=== PATIENT | male | born 1990 | race Asian ===

== ENCOUNTER 2020-03-15 20:11 | Emergency (ER) | payer SELFPAY ==
[~2020-03-15] VITALS: Ht 172.7 cm; Wt 52.2 kg
[2020-03-15 20:18] VITALS: BP 113/73
[2020-03-15] MEDS ORDERED: ELIMITE 5% CREA60 GM TOPIC (21:19)
--- NOTE | 2020-03-15 21:36 | Emergency Room Report ---
History of Present Illness General Chief Complaint: Skin Rash/Abscess Source: Patient Present Illness HPI 29-year-old male presented by EMS from the street due to lower extremity pain and rash. He states he noted the rash over the past couple of days. He denies being homeless. He is not sure if other people in his home have the rash. It is itching. Around both ankles. He also reports using methamphetamine yesterday. He denies any fevers nausea vomiting chest pain or shortness of breath. Allergies: Coded Allergies: No Known Allergies (Unverified , 03/15/20) COVID-19 Screening Contact w/high risk pt: No Recent Travel to affected area: No Experienced COVID-19 symptoms?: No COVID-19 Testing performed [employer]: Yes COVID-19 Screening: Negative COVID-19 COVID-19 Testing Source: snf Patient History Reviewed Nursing Documentation: PMH: Agreed; PSxH: Agreed Nursing Documentation-PMH Past Medical History: No Stated History Review of Systems All Other Systems: negative except mentioned in HPI Physical Exam Vital Signs Date Time Temp Pulse Resp B/P (MAP) Pulse Ox O2 Delivery O2 Flow Rate FiO2 03/15/20 20:11 97.3 103 18 113/73 (86) 99 Sp02 EP Interpretation: reviewed, normal General Appearance: well appearing, no apparent distress Head: normocephalic, atraumatic Eyes: bilateral eye PERRL, bilateral eye EOMI ENT: hearing grossly normal, moist mucus membranes Neck: full range of motion, supple Respiratory: lungs clear, normal breath sounds, no rhonchi, no respiratory distress, no retraction, no wheezing Cardiovascular #1: normal peripheral pulses, no murmur, tachycardia Gastrointestinal: non tender, soft, non-distended, no guarding Neurologic: alert, oriented x3, no focal defects Skin: normal color, rash - Bilateral lower extremities with erythematous rash noted appeared to be insect bites with some excoriations., warm/dry Medical Decision Making Diagnostic Impression: Primary Impression: Scabies Additional Impression: Methamphetamine abuse ER Course Patient presented for rash of the lower extremities. On exam it did appear to be possibly scabies. He does use methamphetamine and did use yesterday but was alert and oriented. I will prescribe topical permethrin and instruct patient to clean home and sheets with hot water vigorously. He is otherwise in no acute distress and nontoxic-appearing. Will be discharged to self-care. I did recommend avoiding further methamphetamine use. Last Vital Signs Date Time Temp Pulse Resp B/P (MAP) Pulse Ox O2 Delivery O2 Flow Rate FiO2 03/15/20 20:18 97.3 103 18 113/73 99 Disposition: HOME, SELF-CARE Condition: Stable Scripts Permethrin (Permethrin) 60 Gm Cream..g. 1 APPLIC TOPIC ONCE, #60 GM 0 Refills Prov: Felipe Wyatt M.D. 03/15/20 Referrals: [facility] Patient Instructions: Contact Precautions, [id number] Additional Instructions: Patient is instructed to follow-up with her primary care doctor, primary care clinic or [facility] in 1 to 2 days. Patient instructed to return for any worsening symptoms or concerns. Disclaimer: Please note that this report is being documented using [employer] technology. This can lead to erroneous entry secondary to incorrect interpretation by the dictating instrument. Felipe Wyatt M.D. Mar 15, 2020 21:36
== END 2020-03-15 21:30 | disposition home or self-care (01) ==
LOC: EDBD 20:11 → EMR 21:15
DX: B86 Scabies (principal); F15.10 Other stimulant abuse, uncomplicated
CPT/HCPCS: 99281